=== PATIENT | male | born 1965 | race Caucasian/White ===

== ENCOUNTER 2021-11-28 20:21 | Emergency (ER) | payer OTHER, SELFPAY ==
[2021-11-28 20:35] VITALS: BP 144/95; PULSE 93; RESP 14; TEMP 37; O2SAT 97; BMI 31.6
--- NOTE | 2021-11-28 21:11 | ED.WOUNDLAC ---
HPI - Wound/Laceration General Chief Complaint: Wound/Laceration Stated Complaint: rt lower leg injury Time Seen by Provider: 11/28/21 20:28 Source: patient Mode of arrival: Ambulatory History of Present Illness HPI narrative: 55M nonsmoker without significant medical history presents for evaluation of a right anterior morgan wound suffered earlier tonight. He was in his normal state of health and denies any prodromal symptoms such as dizziness, weakness or lightheadedness. He was stepping off his boat and tripped on the [place] and fell forward injuring his anterior morgan. He states his tetanus is current and was updated just a few years ago. He denies much in the way of pain and states that it did not bleed all that much. He is otherwise well and free of complaint Related Data Previous Rx's Medication Instructions Recorded doxycycline hyclate 100 mg tablet 100 mg PO BID #20 tabs 11/28/21 Allergies Allergy/AdvReac Type Severity Reaction Status Date / Time No Known Drug Allergies Allergy Verified 11/28/21 20:40 Review of Systems Review of Systems Narrative: GENERAL: Denies chills, fatigue, malaise, fever, sweats. HEENT: Denies sinus pain, ear pain, sore throat, difficulty swallowing, dizziness. RESPIRATORY: Denies dyspnea, cough, wheezing, hemoptysis, sputum. CARDIOVASCULAR: Denies chest pain, palpitations, orthopnea, edema, GASTROINTESTINAL: Denies nausea, vomiting, abdominal pain, diarrhea, constipation, melena. : Denies dysuria, frequency, incontinence, hematuria, urinary retention. MUSCULOSKELETAL: See HPI SKIN: Denies rash, skin lesions, or other NEUROLOGIC: Denies weakness, headache, numbness, change in speech, confusion, seizures, incoordination. PSYCHIATRIC: No concerning psychosocial issues. 12 point review of systems is negative except for those stated above Patient History Social History Smoking Status: Unknown if ever smoked Smoking Status: Unknown if ever smoked alcohol intake frequency: holidays/special occasions only Substance Use Type: does not use Exam Narrative Exam Narrative: GEN: AOx3 and in mild distress EYES: Pupils are equal, round, and reactive to light and accommodation. Extraoccular muscles are intact bilaterally. There is no subconjunctival hemorrhage or exudate. CHEST: Lungs are clear to auscultation bilaterally and free of wheezes, rales, or rhonchi. Heart rate is regular rhythm, there are no murmurs, clicks, rubs, or gallops. There is no chest wall tenderness. ABD: Abdomen is soft and nontender. There is no guarding or rebound. Bowel sounds are normal in all 4 quadrants. There is no mass or organomegaly. EXT: 6 cm deep wound on right anterior morgan with exposure of subcutaneous tissue and fascia, no foreign body or bone exposure. Minimal if any bleeding SKIN: Warm, pink, and dry. No erythema or rash Initial Vital Signs Initial Vital Signs: Vital Signs Temperature 98.6 F 11/28/21 20:35 Pulse Rate 93 H 11/28/21 20:35 Respiratory Rate 14 11/28/21 20:35 Blood Pressure 144/95 H 11/28/21 20:35 Pulse Oximetry 97 11/28/21 20:35 Oxygen Delivery Method 11/28/21 20:35 Procedures Laceration Repair Laceration 1: Site: lower extremity Side (If applicable): right Size (cm): 6 Description: irregular and clean Depth: involves muscle layer Local Anesthetic: bupivacaine 0.5% and with epi Amount of anesthesia used (mL): 8 Pre-repair: wound explored and cleansed with chlorhexadine Skin layer closed with: nylon Skin layer suture size: 4-0 Number of sutures: 9 Technique: simple, interrupted and horizontal mattress Subcutaneous layer closed with: vicryl Subcutaneous layer suture size: 4-0 Number of sutures: 3 Technique: simple, interrupted Course Vital Signs Vital signs: Vital Signs - 8 hr 11/28/21 20:35 Temperature 98.6 F Pulse Rate 93 H Respiratory Rate 14 Blood Pressure 144/95 H Pulse Oximetry 97 Oxygen Delivery Method Room Air Discharge Plan Departure Patient Disposition: Home Clinical Impression: Laceration Instructions: DI for Laceration Repair Activity Restrictions/Additional Instructions: *You have been diagnosed with [right anterior morgan laceration] *What to do: *Please continue to take your regular medications as directed. [x ] New medication prescriptions sent to your pharmacy: [[facility]] [ ] New medication written as a paper prescription [ ] No new medications given * Please keep the wound clean and dry to the best of your ability. Please monitor for signs of infection such as redness to the skin or increasing pain. Have the sutures/curly removed by your doctor in about 7 days. If you are unable to get into your doctor, we would be happy to remove the sutures/curly in that same timeframe. *Return to Emergency Department if you should have any new, worsening or concerning symptoms Prescriptions: New doxycycline hyclate 100 mg tablet 100 mg PO BID Qty: 20 0RF
== END 2021-11-28 22:45 | disposition home or self-care (01) ==
PROVIDERS: Emergency Provider Emergency Medicine
DX: S81.811A Laceration without foreign body, right lower leg, initial encounter (principal); W45.8XXA Other foreign body or object entering through skin, initial encounter
CPT/HCPCS: 13132; 99282; 99283